=== PATIENT | female | born 1965 | race Caucasian/White ===

== ENCOUNTER 2019-09-20 21:57 | Emergency (ER) | payer SELFPAY ==
[2019-09-20 22:46] LABS: Potassium 3.6 mmol/L (3.5-5.1)
[2019-09-20 22:47] LABS: Absolute Lymphocytes (CBC) 1.9 K/uL (0.7-4.9); Basophils % 0.6 % (0-1.3); Hematocrit 42.6 % (36.0-45.0); Lymphocytes % 21.9 % (15.3-44.8); MPV 8.3 fL (7.6-11.3); RBC Red Blood Cell Count 4.92 M/uL (3.86-4.86)
[2019-09-20] MEDS ORDERED: dexAMETHasone 10 MG/ML VIAL ONE (23:42)
[2019-09-20] MEDS ORDERED: CLINDAMYCIN 900MG/D5W 900 MG/50 ML IVPB IV ONE (23:42)
--- NOTE | 2019-09-21 01:08 | EDPHYS ---
Physician Documentation [facility] Name: Estephanie Frederick Age: 54 yrs Sex: Female : 1965 Arrival Date: 09/20/2019 Time: 22:00 Bed 5 Private MD: ED Physician Earl Salazar HPI: 09/19 22:15 This 54 yrs old Female presents to ER via Ambulatory with complaints of Sore jmm Throat. 22:15 The patient presents with sore throat. Onset: The symptoms/episode began/occurred jmm gradually, this morning. Modifying factors: The symptoms are alleviated by nothing, the symptoms are aggravated by nothing. Associated signs and symptoms: Pertinent positives: shortness of breath Sore throat. This is a 54 year old female with a history of breast cancer that presents to the ED with complaints of right sided throat pain beginning this morning. Patient states she developed increased swelling throughout the day. Patient is concerned about difficulty breathing. Patient denies fever or chills . Historical: - Allergies: 22:13 No Known Allergies; rv - PMHx: 22:13 BREAST CA; rv - PSHx: 22:13 OOPHERECTOMY; Tubal ligation; Cholecystectomy; rv - Immunization history:: Adult Immunizations up to date. - Social history:: Smoking status: Patient/guardian denies using tobacco, the patient reports quitting approximately 16 years ago. ROS: 22:15 Constitutional: Negative for fever, chills, and weight loss. jmm 22:15 Abdomen/GI: Negative for abdominal pain, nausea, vomiting, diarrhea, and constipation, Neuro: Negative for headache, weakness, numbness, tingling, and seizure. 22:15 ENT: Positive for sore throat. 22:15 All other systems are negative. Exam: 22:15 Head/Face: atraumatic. Eyes: EOMI, no conjunctival erythema appreciated Neck: jmm Trachea midline, Supple Chest/axilla: Normal chest wall appearance and motion. Cardiovascular: Regular rate and rhythm. No edema appreciated Respiratory: Normal respirations, no respiratory distress appreciated Abdomen/GI: Non distended, soft Back: Normal ROM 22:15 Skin: General appearance color normal MS/ Extremity: Moves all extremities, no obvious deformities appreciated, no edema noted to the lower extremities Neuro: Awake and alert, normal gait Psych: Behavior is normal, Mood is normal, Patient is cooperative and pleasant 22:15 Constitutional: The patient appears in no acute distress, alert, awake. 22:15 ENT: Posterior pharynx: Uvula: shifted, swelling, that is moderate, erythema, that is moderate, peritonsillar mass, is noted on the right. 22:15 Neck: Lymph nodes: lymphadenopathy is appreciated, anterior cervical nodes. Vital Signs: 22:09 BP 156 / 110; Pulse 88; Resp 18; Temp 99.1; Pulse Ox 98% on R/A; Weight 72.57 kg; rv Height 5 ft. 9 in. (175.26 cm); 22:45 BP 120 / 77; Pulse 94; Resp 17; Pulse Ox 98% on R/A; 09/20 01:17 BP 129 / 84; Pulse 82; Resp 17; Temp 98.9(O); Pulse Ox 97% on R/A; 09/19 22:09 Body Mass Index 23.63 (72.57 kg, 175.26 cm) rv MDM: 09/19 22:15 Patient medically screened. [facility] 09/20 01:05 Data reviewed: vital signs, nurses notes. [facility] 01:06 Data reviewed: lab test result(s), radiologic studies, CT scan. ED course: Patient has [facility] a preference for [facility]. I discussed the patient with whom accepted admission.. 09/19 22:16 Order name: CBC with Diff; Complete Time: 23:14 [facility] 09/19 22:16 Order name: BMP; Complete Time: 22:50 [facility] 09/19 22:16 Order name: Soft Tissue Neck W/Contr CT [facility] 09/19 22:50 Order name: Strep; Complete Time: 23:39 [facility] 09/19 23:37 Order name: Throat Culture [facility] 09/19 22:16 Order name: Saline Lock; Complete Time: 22:34 [facility] Administered Medications: 09/19 23:45 Drug: Decadron - Dexamethasone 10 mg Route: IVP; Site: right antecubital; 09/20 01:18 Follow up: Response: No adverse reaction 09/19 23:45 Drug: Clindamycin 900 mg Route: IVPB; Infused Over: 30 mins; Site: right antecubital; 09/20 01:18 Follow up: IV Status: Completed infusion; IV Intake: 100ml rv Disposition: 05:27 Co-signature as Attending Physician, Earl Salazar MD I agree with the assessment and 4 plan of care. Disposition: 09/21/19 01:07 Transfer ordered to [facility]. Diagnosis is Peritonsillar abscess. - Reason for transfer: Higher level of care. - Accepting physician is Ron. - Condition is Stable. - Problem is new. - Symptoms are unchanged. Signatures: Dispatcher [employer] EDMS Alfredito Lowry PA PA jmm Wadley, Terrence, MD MD 4 Sammy Gil RN RN rv Corrections: (The following items were deleted from the chart) 01: 01:05 Counseling: I had a detailed discussion with the patient and/or guardian daisy regarding: the historical points, exam findings, and any diagnostic results supporting the discharge/admit diagnosis, radiology results, the need for outpatient follow up, to return to the emergency department if symptoms worsen or persist or if there are any questions or concerns that arise at home, daisy 01:51 01:07 09/21/2019 01:07 Transfer ordered to [facility]. Diagnosis is rv Peritonsillar abscess. Reason for transfer: Higher level of care. Accepting physician is Ron. Condition is Stable. Problem is new. Symptoms are unchanged. daisy
--- NOTE | 2019-09-21 01:08 | ER ---
Nurse's Notes [facility] Name: Estephanie Frederick Age: 54 yrs Sex: Female : 1965 Arrival Date: 09/20/2019 Time: 22:00 Bed 5 Private MD: Diagnosis: Peritonsillar abscess Presentation: 09/19 22:09 Chief complaint: Patient states: I FELT SORENESS THIS MORNING. THIS EVENING IT GOTTEN rv WORSE AND IT FEELS LIKE MY THROAT IS CLOSING. Coronavirus screen: Patient denies fever greater than 100.4F, cough, shortness of breath, or difficulty breathing. Proceed with normal triage process. Ebola Screen: No symptoms or risks identified at this time. Initial Sepsis Screen: Does the patient meet any 2 criteria? No. Patient's initial sepsis screen is negative. Does the patient have a suspected source of infection? No. Patient's initial sepsis screen is negative. Risk Assessment: Do you want to hurt yourself or someone else? Patient reports no desire to harm self or others. 22:09 Method Of Arrival: Ambulatory rv 22:09 Acuity: UGO 3 rv 22:18 Onset of symptoms was September 20, 2019 at 08:00. rv Historical: - Allergies: 22:13 No Known Allergies; rv - PMHx: 22:13 BREAST CA; rv - PSHx: 22:13 OOPHERECTOMY; Tubal ligation; Cholecystectomy; rv - Immunization history:: Adult Immunizations up to date. - Social history:: Smoking status: Patient/guardian denies using tobacco, the patient reports quitting approximately 16 years ago. Screenin:09 Abuse screen: Denies threats or abuse. Denies injuries from another. Nutritional rr5 screening: No deficits noted. Tuberculosis screening: No symptoms or risk factors identified. Fall Risk None identified. Total Arana Fall Scale indicates No Risk (0-24 pts). Assessment: 22:13 General: Appears in no apparent distress. Behavior is calm, cooperative. Pain: rv Complains of pain in THROAT. Neuro: Level of Consciousness is awake, alert, obeys commands, Oriented to person, place, time, situation. Cardiovascular: Patient's skin is warm and dry. Respiratory: Airway is patent Respiratory effort is even, Breath sounds are clear bilaterally. EENT: Throat is reddened has enlarged tonsils on right. Derm: Skin is intact. 22:56 Reassessment: patient taken to CT scan via wheelchair by Sherry. rv 09/20 01:17 Reassessment: Patient appears in no apparent distress at this time. Patient and/or rv family updated on plan of care and expected duration. Pain level reassessed. Patient is alert, oriented x 3, equal unlabored respirations, skin warm/dry/pink. REPORT GIVEN TO [facility]. PATIENT UPDATED ON THE PLAN OF CARE AND LENGTH OF WAIT. Respiratory: Airway is patent Respiratory effort is even. Vital Signs: 09/19 22:09 BP 156 / 110; Pulse 88; Resp 18; Temp 99.1; Pulse Ox 98% on R/A; Weight 72.57 kg; rv Height 5 ft. 9 in. (175.26 cm); 22:45 BP 120 / 77; Pulse 94; Resp 17; Pulse Ox 98% on R/A; rv 09/20 01:17 BP 129 / 84; Pulse 82; Resp 17; Temp 98.9(O); Pulse Ox 97% on R/A; rv 09/19 22:09 Body Mass Index 23.63 (72.57 kg, 175.26 cm) rv ED Course: 09/19 22:00 Patient arrived in ED. ds1 22:06 Alfredito Lowry PA is PHCP. [facility] 22:06 Earl Salazar MD is Attending Physician. [facility] 22:08 Sammy Gil, ELANA is Primary Nurse. rv 22:09 Patient has correct armband on for positive identification. Bed in low position. Call rr5 light in reach. Pulse ox on. NIBP on. 22:11 Triage completed. rv 22:17 Patient placed in the treatment room, on a stretcher, Patient notified of wait time. rv 22:25 Inserted saline lock: 20 gauge in right antecubital area, using aseptic technique. rv Blood collected. 22:25 Initial lab(s) drawn, by me, sent to lab. rv 22:55 Strep swab sent to lab. rr5 23:32 Soft Tissue Neck W/Contr CT In Process Unspecified. EDMS 09/20 01:36 No provider procedures requiring assistance completed. IV is patent, with fluids rv infusing freely, with good blood return, Patient transferred, IV remains in place. Administered Medications: 09/19 23:45 Drug: Decadron - Dexamethasone 10 mg Route: IVP; Site: right antecubital; rv 09/20 01:18 Follow up: Response: No adverse reaction rv 09/19 23:45 Drug: Clindamycin 900 mg Route: IVPB; Infused Over: 30 mins; Site: right antecubital; rv 09/20 01:18 Follow up: IV Status: Completed infusion; IV Intake: 100ml rv Intake: 01:18 IV: 100ml; Total: 100ml. rv Outcome: 01:07 ER care complete, transfer ordered by . daisy 01:37 Transferred by ground EMS to [facility], Transfer form completed. X-rays sent rv w/ patient. 01:37 Condition: good 01:37 Instructed on the need for transfer, Demonstrated understanding of instructions. 01:51 Patient left the ED. rv Signatures: Dispatcher [employer] EDMS Alfredito Lowry PA PA jmm Sanford, Demi ds1 Sammy Gil RN RN rv You Addison RN RN rr5 Corrections: (The following items were deleted from the chart) 01:36 01:29 Inserted saline lock: 18 gauge in left antecubital area, using aseptic technique. rv rv 01:49 09/19 22:13 EENT: Throat is reddened has enlarged tonsils on left rv rv
[2019-09-21 02:02] VITALS: BP 129/84; TEMP 98.9; O2SAT 97
--- NOTE | 2019-09-21 12:30 | RAD REPORT ---
EXAM DESCRIPTION: CT - Soft Tissue Neck W/Contr - 09/20/2019 11:32 pm CLINICAL HISTORY: Rule out ESL INSTRUCTOR COMPARISON: None. TECHNIQUE: CT NECK WITH IV CONTRAST on 09/20/2019 10:16 PM CDT This exam was performed according to our departmental dose-optimization program, which includes autom ated exposure control, adjustment of the mA and/or kV according to patient size and/or use of iterati ve reconstruction technique. FINDINGS: The visualized portions of the brain and orbits are normal. There is enlargement of the right palatine tonsil with a lateral peritonsillar peripherally enhancing fluid collection measuring at least 1.6 cm. The airway is displaced to the right. The parapharynge al fat planes are preserved. The hypopharynx is unremarkable. The parotid and submandibular glands are grossly within normal limits. No intrinsic mass lesions are seen. . The paranasal sinuses and mastoid air cells are clear. No definite pathologically enlarged lymph nodes are identified. The thyroid gland is normal in size and configuration. The thoracic inlet is normal. The superior mediastinum and lung apices are normal. No acute osseous abnormalities are identified. IMPRESSION: Right peritonsillar abscess. Electronically signed by: Luis Alberto Antonio MD 09/21/2019 12:08 AM CDT Due to temporary technical issues with the PACS/Fluency reporting system, reports are being signed by the in house radiologist as a courtesy to ensure prompt reporting. The interpreting radiologist is f ully responsible for the content of the report.
== END 2019-09-21 01:51 | disposition short-term general hospital (02) ==
LOC: ER 21:57
DX: J36 Peritonsillar abscess (principal); Z85.3 Personal history of malignant neoplasm of breast; Z87.891 Personal history of nicotine dependence
CPT/HCPCS: 36415; 70491; 80048; 85025; 87070; 87081; 96365; 96366; 96375; 99285; J1100; Q9967